=== PATIENT | male | born 1960 | race Two or more races ===

== ENCOUNTER 2017-07-08 11:34 | Inpatient (IN) | payer MEDICARE, MEDICAID ==
[2017-07-08] VITALS (7 sets, daily range): BP systolic 93–128; BP diastolic 54–74; PULSE 64–72; RESP 18–20; TEMP 98.1; Ht 182.9 cm; Wt 75.0 kg
[~2017-07-08] VITALS: Ht 182.9 cm; Wt 75.0 kg
[~2017-07-08 11:34] MED LIST: ACET500T98; ASPI-650; BISA10SU; CALA180L2; CARV3.1238; CLON-379; DIGO125T73; DIL1I; DOCU50LI18; FOLI-49; GUAI600T21; LEVA1.2527; LORA-441; MULT1TAB21; NYST15CR28; ONDA4VIA3; PANT40TA3; RTATR; RTPRO5; SAN30GM; SILV50CR; VALS80TA2; VIC; ZINC220T; [UNRECOGNIZED DRUG - CODE]; [UNRECOGNIZED DRUG - CODE]
[2017-07-08 12:44] LABS: BASOPHILS % 0.5 % (0.0-2.0); EOSINOPHILS # 0.4 10^3/ul (0.0-0.5); EOSINOPHILS % 5.7 % (0.0-7.0); HEMATOCRIT 29.6 % (42.0-52.0); LYMPHOCYTES # 1.2 10^3/ul (0.8-2.9); LYMPHOCYTES % 18.4 % (15.0-51.0); MEAN CORPUSCULAR HGB CONC 30.4 g/dl (32.0-37.0); MEAN CORPUSCULAR VOLUME 98.7 fl (82.0-101.0); MEAN PLATELET VOLUME 9.9 fl (7.4-10.4); MONOCYTE # 0.4 10^3/ul (0.3-0.9); MONOCYTES % 5.7 % (0.0-11.0); NEUTROPHIL # 4.4 10^3/ul (1.6-7.5); NEUTROPHILS % 68.8 % (39.0-77.0); PLATELET COUNT 196 10^3/UL (140-415); WHITE BLOOD COUNT 6.4 10^3/ul (4.8-10.8)
[2017-07-08 12:58] LABS: INR 0.99; PROTIME 13.1 Sec (12.2-14.2)
[2017-07-08 12:59] LABS: PARTIAL THROMBOPLASTIN TIME 38.1 Sec (25.0-35.0)
[2017-07-08 13:03] LABS: ALBUMIN 3.6 g/dl (3.3-4.9); BILIRUBIN,INDIRECT 0.1 mg/dl (0-1.1); BILIRUBIN,TOTAL 0.1 mg/dl (0.2-1.3); CALCIUM 8.9 mg/dl (8.4-10.2); CREATININE 1.69 mg/dl (0.61-1.24); POTASSIUM 5.3 mmol/L (3.5-5.1); TOTAL PROTEIN 6.7 g/dl (6.1-8.1)
--- NOTE | 2017-07-08 13:04 | RADRPT ---
PROCEDURE: XR Chest. CLINICAL INDICATION: chest pain TECHNIQUE: Single frontal view of the chest was obtained COMPARISON: None FINDINGS: The heart and mediastinum are within normal limits. There is no pneumothorax. There is left lower lobe pleural thickening versus small left pleural effusion. There is no focal consolidation. RPTAT: AA IMPRESSION: Left lower lobe pleural thickening versus small left pleural effusion. .Gaurang Barnes MD, MD Date Time Electronically viewed and signed by .Gaurang Barnes MD, on 07/08/2017 13:04 .S/
[2017-07-08] MEDS ORDERED: ONDANSETRON 4 MG INJ IV STA (13:07)
[2017-07-08] MEDS ORDERED: HYDROmorphONE 1 MG/ML SYG IV STA (13:07)
--- NOTE | 2017-07-08 13:15 | ERA ---
ER Documentation Chief Complaint Date/Time DATE: 07/08/17 TIME: 13:11 Chief Complaint Pt bib RA referred by for R femur fx, taken by mobil x-ray. HPI This is a 57-year-old quadriplegic from a gymnastics injury 30 years complains that he was sent for a broken right femur. The patient was being transported on a material stretcher that ripped and the 2 gentleman holding either and were able to catch him but he feels like his right leg got twisted in this stretcher. He states this happened around 7-10 days ago. He states that he has had some vague discomfort in his right thigh and is complaining to the doctors about it where he resides but nothing was done. He said finally an x- ray was done today which shows a compound right femur fracture and he was sent here for admission. ROS All systems reviewed and are negative except as per history of present illness. Medications Home Meds Reported Medications Ondansetron Hcl/Pf (Zofran 4 Mg/2 Ml Vial) 4 Mg/2 Ml Vial 10/16/10 Lorazepam* (Ativan*) 0.5 Mg Tablet 10/16/10 Hydromorphone Hcl* (Dilaudid* Inj) 1 Mg/Ml Soln 10/16/10 Acetaminophen/Hydrocodone (Vicodin) 1 Tab Tab 10/16/10 Clonidine Hcl* (Clonidine Hcl*) 0.1 Mg Tab 10/16/10 Albuterol Sulfate* (Proventil* Neb) 0.5 Ml Nebu 10/16/10 Acetaminophen (Tylenol) 500 Mg Tab 10/16/10 Zinc Sulfate* (Zinc Sulfate*) 220 Mg Tablet 10/16/10 Valsartan* (Diovan*) 80 Mg Tablet 10/16/10 Silver Sulfadiazine* (Thermazene*) 20 Gm Cream.gm. 10/16/10 Pantoprazole* (Protonix*) 40 Mg Tablet.dr 10/16/10 Nystatin (Nystatin) 15 Gm Cream.gm. 10/16/10 Multivitamins,Therapeutic (Theragran) 1 Tab Tablet 10/16/10 Levalbuterol Hcl* (Xopenex*) 1.25 Mg/3 Ml Vial.neb 10/16/10 Ipratropium [place]* (Atrovent*) 2.5 Ml Nebu 10/16/10 Guaifenesin* (Mucinex*) 600 Mg Tablet.sa 10/16/10 Folic Acid* (Folic Acid*) 1 Mg Tablet 10/16/10 Mineral Oil (Eucerin Lotion) 480 Ml Lotion 10/16/10 Docusate Sodium (Colace) 50 Mg/5 Ml Liquid 10/16/10 Digoxin (Digoxin) 125 Mcg Tablet 10/16/10 Collagenase* (Santyl*) 30 Gm Oint..gm. 10/16/10 Carvedilol* (Coreg*) 3.125 Mg Tablet 10/16/10 Calamine (Calamine) 180 Ml Lotion 10/16/10 Bisacodyl (Bisacodyl) 10 Mg/Supp.rect Supp.rect 10/16/10 Aspirin (Aspirin) 81 Mg Tablet 10/16/10 Ascorbic Acid (Ascorbic Acid) 500 Mg Tablet 10/16/10 Allergies Allergies: Coded Allergies: Gabapentin (Verified Allergy, Unknown, 10/16/10) PMhx/Soc History of Surgery: Yes (TRACHEOSTOMY) Anesthesia Reaction: No Hx Neurological Disorder: Yes (C5 QUADRIPLEGIA) Hx Respiratory Disorders: Yes (RESP DISTRESS WITH TRACHEOSTOMY) Hx Cardiac Disorders: Yes (MA WITH ATRIAL FIB) Hx Psychiatric Problems: No Hx Miscellaneous Medical Probl: Yes (ANEMIA, PAIN SYNDROME) Hx Alcohol Use: No Hx Substance Use: No Hx Tobacco Use: No FmHx Family History: No coronary disease Physical Exam Vitals Vital Signs Date Time Temp Pulse Resp B/P Pulse Ox O2 Delivery O2 Flow Rate FiO2 07/08/17 11:42 98.1 80 18 195/96 98 Physical Exam Const: Well-developed, well-nourished Head: Atraumatic, normocephalic Eyes: Normal Conjunctiva, PERRLA, EOMI, normal sclera, no nystagmus ENT: Normal External Ears, Nose and Mouth, moist mucus membranes. Neck: Full range of motion. No meningismus, no lymphadenopathy. Resp: Clear to auscultation bilaterally, no wheezing, rhonchi, rales Cardio: Regular rate and rhythm, no murmurs, S1 S2 present Abd: Soft, non tender x 4, non distended. Normal bowel sounds, no guarding or rebound, no pulsitile abdominal masses or bruits, indwelling Villarreal Skin: No petechiae or rashes, no ecchymosis , no maculopapular rash Back: No midline or flank tenderness Ext: No cyanosis, or edema, has some range of motion in the upper extremities shoulders with hand contractures, normal inspection, vascularly intact x 4, the right thigh has some edema and swelling, no redness or open wound Neur: Awake and alert, STR 5/5 x 4, sensation intact x 4, no focal findings, cerebellum intact Psych: Normal Mood and Affect Result Diagram: 07/08/17 1230 07/08/17 1230 Results 24 hrs Laboratory Tests Test 07/08/17 12:30 White Blood Count 6.410^3/ul Red Blood Count 3.0010^6/ul Hemoglobin 9.0g/dl Hematocrit 29.6% Mean Corpuscular Volume 98.7fl Mean Corpuscular Hemoglobin 30.0pg Mean Corpuscular Hemoglobin Concent 30.4g/dl Red Cell Distribution Width 14.0% Platelet Count 24406^3/UL Mean Platelet Volume 9.9fl Neutrophils % 68.8% Lymphocytes % 18.4% Monocytes % 5.7% Eosinophils % 5.7% Basophils % 0.5% Nucleated Red Blood Cells % 0.0/100WBC Neutrophils # 4.410^3/ul Lymphocytes # 1.210^3/ul Monocytes # 0.410^3/ul Eosinophils # 0.410^3/ul Basophils # 0.010^3/ul Nucleated Red Blood Cells # 0.010^3/ul Prothrombin Time 13.1Sec Prothrombin Time Ratio 1.0 INR International Normalized Ratio 0.99 Activated Partial Thromboplast Time 38.1Sec Sodium Level 145mmol/L Potassium Level 5.3mmol/L Chloride Level 116mmol/L Carbon Dioxide Level 21mmol/L Anion Gap 13 Blood Urea Nitrogen 33mg/dl Creatinine 1.69mg/dl Glucose Level 91mg/dl Calcium Level 8.9mg/dl Total Bilirubin 0.1mg/dl Direct Bilirubin 0.00mg/dl Indirect Bilirubin 0.1mg/dl Aspartate Amino Transf (AST/SGOT) 17IU/L Alanine Aminotransferase (ALT/SGPT) 29IU/L Alkaline Phosphatase 94IU/L Total Protein 6.7g/dl Albumin 3.6g/dl Current Medications Medications (Trade) Dose Ordered Sig/Rafael Route PRN Reason Start Time Stop Time Status Last Admin Dose Admin Hydromorphone HCl (Dilaudid) 1 mg ONCE STAT IV 07/08/17 13:07 07/08/17 13:10 DC 07/08/17 13:19 Ondansetron HCl (Zofran Inj) 4 mg ONCE STAT IV 07/08/17 13:07 07/08/17 13:10 DC 07/08/17 13:19 Procedures/MDM EKG: Rate/Rhythm: Sinus bradycardia QRS, ST, QT: NORMAL [place], QRS, QT] Impression: Sinus bradycardia PROCEDURE: XR Chest. CLINICAL INDICATION: chest pain TECHNIQUE: Single frontal view of the chest was obtained COMPARISON: None FINDINGS: The heart and mediastinum are within normal limits. There is no pneumothorax. There is left lower lobe pleural thickening versus small left pleural effusion. There is no focal consolidation. RPTAT: AA IMPRESSION: Left lower lobe pleural thickening versus small left pleural effusion. .Gaurang Barnes MD, MD Date Time Electronically viewed and signed by .Gaurang Barnes MD, MD on 07/08/2017 13: 04 .S/ CC: LEILA DAVIDSON DO PROCEDURE: XR Femur. CLINICAL INDICATION: Injury TECHNIQUE: AP and lateral views of the right femur were obtained. COMPARISON: No prior studies are available for comparison. FINDINGS: The osseous structures are markedly demineralized. There is a comminuted, minimally displaced fracture of the distal femoral diaphysis noting mild anterior angulation of the fracture apex and anterior displacement of the distal fragment. Tricompartmental knee arthrosis seen, partially assessed. The right hip is grossly preserved per there is a focus of dystrophic ossification/ ossification lateral to the greater trochanter. IMPRESSION: 1. Comminuted, mildly displaced and angulated fracture of the distal radial diaphysis. 2. Marked decreased bone mineral density. 3. Ectopic soft tissue calcification lateral to the right greater trochanter, to be correlated with history of dialysis. RPTAT: HH .Bob Quach MD, MD Date Time Electronically viewed and signed by .Bob Quach MD, MD on 07/08/2017 13:40 .d/ CC: LEILA DAVIDSON DO The page Dr. Thompson orthopedic surgery. Will admit the patient for operative repair of his right femur Departure Diagnosis: Primary Impression: Right femoral shaft fracture Qualified Code: S72.301A - Closed fracture of shaft of right femur, unspecified fracture morphology, initial encounter Condition: Stable LEILA DAVIDSON DO Jul 08, 2017 13:15
--- NOTE | 2017-07-08 13:41 | RADRPT ---
PROCEDURE: XR Femur. CLINICAL INDICATION: Injury TECHNIQUE: AP and lateral views of the right femur were obtained. COMPARISON: No prior studies are available for comparison. FINDINGS: The osseous structures are markedly demineralized. There is a comminuted, minimally displaced fractu re of the distal femoral diaphysis noting mild anterior angulation of the fracture apex and anterior displacement of the distal fragment. Tricompartmental knee arthrosis seen, partially assessed. The right hip is grossly preserved per there is a focus of dystrophic ossification/ossification lateral to the greater trochanter. IMPRESSION: 1. Comminuted, mildly displaced and angulated fracture of the distal radial diaphysis. 2. Marked decreased bone mineral density. 3. Ectopic soft tissue calcification lateral to the right greater trochanter, to be correlated with history of dialysis. RPTAT: HH .Bob Quach MD, MD Date Time Electronically viewed and signed by .Bob Quach MD, on 07/08/2017 13:40 .d/
[2017-07-08] MEDS ORDERED: SIMV20TA PO (14:41)
[2017-07-08] MEDS ORDERED: DOCU-159 PO (14:42)
[2017-07-08] MEDS ORDERED: ONDA4TAB95 PO (14:42)
[2017-07-08] MEDS ORDERED: OMEP40CA6 PO (14:43)
[2017-07-08] MEDS ORDERED: FOLI-49 PO (14:43)
[2017-07-08] MEDS ORDERED: VALS160T20 PO (14:44)
[2017-07-08] MEDS ORDERED: ERGO500037 PO (14:45)
[2017-07-08] MEDS ORDERED: HYDR-902 PO (14:46)
[2017-07-08] MEDS ORDERED: FENT-65 TD (14:47)
[2017-07-08] MEDS ORDERED: CLON-379 PO (14:48)
[2017-07-08] MEDS ORDERED: MUPI22OI2 TOP (14:49)
[2017-07-08] MEDS ORDERED: ALBU18HF INHALATION (14:49)
[2017-07-08 15:01] LABS: ADD UMIC YES; UR ASCORBIC ACID NEGATIVE (NEGATIVE); UR BACTERIA FEW /HPF (NONE SEEN); UR BILIRUBIN (Dip) NEGATIVE (NEGATIVE); UR BLOOD (Dip) 2+ mg/dL (NEGATIVE); UR CLARITY SLIGHTLY CLOUDY (CLEAR); UR COLOR YELLOW (YELLOW); UR GLUCOSE (Dip) NEGATIVE (NEGATIVE); UR KETONES (Dip) NEGATIVE (NEGATIVE); UR LEUKOCYTE ESTERASE (Dip) 3+ Leu/ul (NEGATIVE); UR NITRITE (Dip) NEGATIVE (NEGATIVE); UR RBC 10 /HPF (0-5); UR TOTAL PROTEIN (Dip) 2+ mg/dl (NEGATIVE); UR UROBILINOGEN (Dip) NEGATIVE (NEGATIVE)
[2017-07-08] MEDS ORDERED: ONDANSETRON 4 MG INJ IV PRN (15:30)
[2017-07-08] MEDS ORDERED: ACETAMINOPHEN 325 MG TAB PO PRN (15:30)
[2017-07-08] MEDS ORDERED: FENTANYL TD SCH (17:30)
[2017-07-08] MEDS ORDERED: ONDANSETRON (ODT) 4 MG TAB ODT PRN (17:30)
[2017-07-08] MEDS ORDERED: ZOLPIDEM 5 MG TAB PO PRN (17:30)
[2017-07-08] MEDS ORDERED: NACL 0.9% 3 ML SYG IV SCH (17:30)
--- NOTE | 2017-07-08 18:39 | RADRPT ---
PROCEDURE: Renal US. CLINICAL INDICATION: Renal dysfunction. TECHNIQUE: Multiple sonographic images of the kidneys and urinary bladder were obtained. The imag es were reviewed on a PACS workstation. COMPARISON: No prior studies are available for comparison. FINDINGS: The right kidney measures 10.3 x 6.3 x 6.6 cm. The left kidney measures 11.7 x 3.1 x 4.9 cm. There is no renal mass. There is no hydronephrosis. There is no renal calculus. Renal parenchymal thickness is normal bilaterally. Both kidneys are hyperechoic consistent with medical renal disease. The perirenal regions are normal with no fluid collection or mass. There is a Villarreal catheter in the bladder. IMPRESSION: 1. Bilateral hyperechoic kidneys consistent with medical renal disease. 2. No hydronephrosis. 3. Villarreal catheter in the bladder. 4. Otherwise normal renal ultrasound. RPTAT: QQ .Luis F Clark MD, MD Date Time Electronically viewed and signed by .Luis F Clark MD, on 07/08/2017 18:39 .R/
[2017-07-08 19:43] LABS: ADD UMIC YES; UR ASCORBIC ACID NEGATIVE (NEGATIVE); UR BACTERIA FEW /HPF (NONE SEEN); UR BILIRUBIN (Dip) NEGATIVE (NEGATIVE); UR BLOOD (Dip) NEGATIVE (NEGATIVE); UR CLARITY SLIGHTLY CLOUDY (CLEAR); UR COLOR YELLOW (YELLOW); UR GLUCOSE (Dip) NEGATIVE (NEGATIVE); UR KETONES (Dip) NEGATIVE (NEGATIVE); UR LEUKOCYTE ESTERASE (Dip) 3+ Leu/ul (NEGATIVE); UR MUCUS FEW /HPF (NONE SEEN); UR NITRITE (Dip) NEGATIVE (NEGATIVE); UR RBC 3 /HPF (0-5); UR SPECIFIC GRAVITY (Dip) 1.012 (1.003-1.030); UR TOTAL PROTEIN (Dip) 2+ mg/dl (NEGATIVE); UR UROBILINOGEN (Dip) NEGATIVE (NEGATIVE)
[2017-07-08] MEDS ORDERED: HYDROCODONE/APAP (10/325) TAB ONE (20:06)
[2017-07-08] MEDS: DOCUSATE SODIUM 100 MG CAP PO SCH (21:58)
[2017-07-08] MEDS: HYDROCODONE/APAP (10/325) TAB PO PRN (21:58)
[2017-07-08] MEDS: MUPIROCIN 2% 22 GM OINT TOP SCH (22:30)
[2017-07-09] MEDS: ALBUTEROL 18 GM INHALER INH SCH ×5 (00:22→22:02)
[2017-07-09] MEDS: HYDROmorphONE 1 MG/ML SYG IV PRN ×10 (00:48→22:44)
[2017-07-09] MEDS: GUAIFENESIN LA 600 MG TABSR PO PRN (00:52)
[2017-07-09 02:22] VITALS: BP 93/52; RESP 20
--- NOTE | 2017-07-09 02:40 | HP ---
DATE OF ADMISSION: 07/08/2017 HISTORY OF PRESENT ILLNESS: The patient is a 57-year-old gentleman with past medical history of chip driplegia after a gymnastic injury 30 years ago with contractures. The patient presented after had a mobile x-ray done on his knee, it was painful after he was twisted, which revealed a broken right femur. The patient was transported and was having pain for the last 7 to 10 days, but thought he mi ght have just strained it. Patient denies any other change. He has been on his regular medications . Continues good urine output, noted to have some renal insufficiency. Denies dysuria or hematuria . No history of frequent urinary tract infections or kidney stones. PAST MEDICAL HISTORY: Significant for C5 quadriplegia, history of respiratory failure, status post trach, status post correction, history of coronary artery disease, atrial fibrillation, history of M I, history of pain syndrome, history of asthma. MEDICATIONS: From home, include: 1. Zofran. 2. Lorazepam. 3. [place]. 4. Clonidine. 5. Albuterol. 6. Zinc sulfate. 7. Diovan. 8. Protonix. 9. Xopenex. 10. Atrovent. 11. Digoxin. 12. Collagenase. 13. Carvedilol. 14. Calamine. 15. Aspirin. 16. Ascorbic acid. ALLERGIES: , GABAPENTIN AND . SOCIAL HISTORY: Does not smoke, drink or use IV drugs. FAMILY HISTORY: History of kidney disease. REVIEW OF SYSTEMS: A 14-point review of systems is attempted and negative unless stated. PHYSICAL EXAMINATION: VITAL SIGNS: We see temperature 98.1, blood pressure 195/96. HEENT: Normocephalic, atraumatic. Pupils equal, round, reactive to light. Oropharynx with moist m ucous membranes. NECK: Supple. HEART: Regular rate and rhythm. LUNGS: Clear to auscultation. ABDOMEN: Soft, nontender, nondistended. Bowel sounds are present. LABORATORY EVALUATION: Shows a white count of 6.4, hemoglobin 9, hematocrit 30. Sodium 145, potass ium 5.3, chloride 116, bicarbonate 21, BUN 33, creatinine 1.69. UA is reviewed on microscopy. Ches t x-ray is reviewed by radiologist. IMPRESSION: 1. Femoral fracture. Probably will just need casting despite comminuted nature. Dr. Donald to evalua te given the fact that he is quadriplegic, probably will impact his mobility by casting it. 2. Hypertension, out of control at the current time. We will adjust medications. Would probably b enefit from limiting TUTU inhibitors in light of hyperkalemia and worsening azotemia. Monitor for no w. 3. Hyperkalemia, renal failure. Again, check ultrasound, urine studies, serial labs. May need to stop the Diovan. 4. 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 Continue Flocare. 5. History of atrial fibrillation, rate controlled. Does not appear to be on anticoagulation. We will discuss. Continue on digoxin. 6. Anemia, possibly anemia of chronic kidney disease. We will check iron stores in labs. 7. History of coronary artery disease. We will risk factor optimize. 8. Chronic pain syndrome. Continue regular analgesia. Dictated By: ELINOR SMITH MD DF/BIANCA Conf#: [id number] DID#: [id number]
[2017-07-09 05:05] LABS: BASOPHILS % 0.6 % (0.0-2.0); EOSINOPHILS # 0.4 10^3/ul (0.0-0.5); EOSINOPHILS % 5.3 % (0.0-7.0); HEMATOCRIT 26.8 % (42.0-52.0); HEMOGLOBIN 8.1 g/dl (14.0-18.0); LYMPHOCYTES # 1.6 10^3/ul (0.8-2.9); LYMPHOCYTES % 24.2 % (15.0-51.0); MEAN CORPUSCULAR HEMOGLOBIN 30.2 pg (29.0-33.0); MEAN CORPUSCULAR HGB CONC 30.2 g/dl (32.0-37.0); MONOCYTE # 0.5 10^3/ul (0.3-0.9); MONOCYTES % 6.8 % (0.0-11.0); NEUTROPHIL # 4.1 10^3/ul (1.6-7.5); PLATELET COUNT 188 10^3/UL (140-415); RED BLOOD COUNT 2.68 10^6/ul (4.70-6.10); RED CELL DISTRIBUTION WIDTH 14.1 % (11.5-14.5); WHITE BLOOD COUNT 6.7 10^3/ul (4.8-10.8)
[2017-07-09 05:25] LABS: ALBUMIN/GLOBULIN RATIO 0.96; CALCIUM 8.8 mg/dl (8.4-10.2); CREATININE 1.72 mg/dl (0.61-1.24); MAGNESIUM 1.7 mg/dl (1.7-2.5); PHOSPHORUS 4.4 mg/dl (2.5-4.9); POTASSIUM 5.3 mmol/L (3.5-5.1); TOTAL PROTEIN 6.1 g/dl (6.1-8.1)
[2017-07-09 05:40] LABS: T3 UPTAKE 45.2 % (23.5-40.5)
[2017-07-09 06:39] LABS: IRON 63 ug/dl (35-150)
[2017-07-09 06:49] LABS: TOTAL IRON BINDING CAPACITY 184 ug/dl (241-421)
[2017-07-09] MEDS: PANTOPRAZOLE (EC) 40 MG TAB PO SCH (06:56)
[2017-07-09 07:29] VITALS: BP 163/93; RESP 18
[2017-07-09] MEDS: HYDROCODONE/APAP (10/325) TAB PO PRN ×2 (08:11→20:30)
[2017-07-09] MEDS: MUPIROCIN 2% 22 GM OINT TOP SCH ×2 (09:00→22:45)
[2017-07-09] MEDS ORDERED: VALSARTAN 160 MG TAB PO SCH (09:00)
[2017-07-09] MEDS: DOCUSATE SODIUM 100 MG CAP PO SCH ×2 (09:03→20:25)
[2017-07-09] MEDS: FOLIC ACID 1 MG TAB PO SCH (09:03)
[2017-07-09] MEDS: ENOXAPARIN 40 MG/0.4 ML SYG SC SCH (09:04)
--- NOTE | 2017-07-09 10:06 | CONS ---
DATE OF ADMISSION: 07/08/2017 DATE OF CONSULTATION: 07/09/2017 CHIEF COMPLAINT: Right leg pain. HISTORY OF PRESENT ILLNESS: This is a 57-year-old quadriplegic nonambulatory patient. He is compla ining of pain all over his body. He noticed swelling over his knee. X-rays were taken. He denies any falls. He is nonambulatory. He has no other complaints. PAST MEDICAL HISTORY: C5 quadriplegia, respiratory failure, coronary artery disease, atrial fibrill ation, myocardial infarction, pain syndrome, asthma. MEDICATIONS: 1. Zofran. 2. [place]. 3. Clonidine. 4. Albuterol. 5. Diovan. 6. Protonix. 7. Atrovent. 8. Digoxin. 9. Carvedilol. 10. Aspirin. PAST SURGICAL HISTORY: Tracheostomy. SOCIAL HISTORY: Denies tobacco, alcohol or drug use. FAMILY HISTORY: Kidney disease. ALLERGIES: GABAPENTIN. REVIEW OF SYSTEMS: Negative other than H and P. PHYSICAL EXAMINATION: VITAL SIGNS: 98.1, 195/96, pulse of 68. GENERAL: Patient is in no acute distress. RIGHT KNEE: No open wounds. There is no deformity. There is an effusion of the right knee, tender over the entire knee, including medial lateral and anterior knee. Unable to perform neuro exam. P alpable pulses. X-RAYS RIGHT KNEE: There is an oblique extraarticular displaced fracture of the distal femur. No o ther fractures or dislocations are seen. IMPRESSION: A 57-year-old male with history of quadriplegia, nonambulatory with a right closed obli que displaced extraarticular distal femur fracture. PLAN: The patient will be nonweightbearing. Given the risks and benefits of this surgery, patient will be treated nonoperatively. Patient should receive a knee immobilizer. I discussed potential c omplications including skin breakdown, nonunion, malunion, stiffness, continued pain. All questions were answered. No operative intervention is necessary at this time. The patient can be discharged from orthopedic standpoint with followup as outpatient. Dictated By: MICAELA GRIFFIN/BIANCA Conf#: [id number] DID#: [id number]
[2017-07-09 14:00] VITALS: BP 128/75; RESP 90
[2017-07-09] MEDS: FENTAnyl PATCH 12 MCG/HR TRANSDERM SCH (16:53)
[2017-07-09] MEDS: ATORVASTATIN 10 MG TAB PO SCH (20:25)
[2017-07-09 20:37] VITALS: BP 178/98; RESP 18
[2017-07-09] MEDS: VALSARTAN 160 MG TAB PO SCH (21:30)
[2017-07-10] MEDS: ALBUTEROL 18 GM INHALER INH SCH ×3 (02:00→14:00)
[2017-07-10 02:05] VITALS: BP 140/89; RESP 20
[2017-07-10] MEDS: PANTOPRAZOLE (EC) 40 MG TAB PO SCH (06:18)
[2017-07-10] MEDS: HYDROCODONE/APAP (10/325) TAB PO PRN ×2 (06:18→22:14)
[2017-07-10 08:00] VITALS: BP 169/96; RESP 18
[2017-07-10] MEDS: VALSARTAN 160 MG TAB PO SCH ×2 (08:08→21:00)
[2017-07-10] MEDS: DOCUSATE SODIUM 100 MG CAP PO SCH ×2 (09:19→20:58)
[2017-07-10] MEDS: FOLIC ACID 1 MG TAB PO SCH (09:19)
[2017-07-10] MEDS: MUPIROCIN 2% 22 GM OINT TOP SCH ×2 (09:20→21:00)
[2017-07-10] MEDS: ENOXAPARIN 40 MG/0.4 ML SYG SC SCH (09:32)
[2017-07-10] MEDS: HYDROmorphONE 1 MG/ML SYG IV PRN ×4 (10:22→20:59)
[2017-07-10 15:07] VITALS: BP 126/67; PULSE 65; RESP 20
[2017-07-10 19:49] VITALS: BP 153/77; RESP 20
[2017-07-10] MEDS: GUAIFENESIN LA 600 MG TABSR PO PRN (20:57)
[2017-07-10] MEDS: ATORVASTATIN 10 MG TAB PO SCH (20:58)
[2017-07-11] MEDS: FOLIC ACID 1 MG TAB PO SCH (08:43)
[2017-07-11] MEDS: PANTOPRAZOLE (EC) 40 MG TAB PO SCH (08:43)
[2017-07-11] MEDS: HYDROmorphONE 1 MG/ML SYG IV PRN ×5 (08:43→21:59)
[2017-07-11] MEDS: DOCUSATE SODIUM 100 MG CAP PO SCH ×2 (08:43→20:58)
[2017-07-11] MEDS: ALBUTEROL 18 GM INHALER INH SCH ×4 (08:47→20:59)
[2017-07-11] MEDS: VALSARTAN 160 MG TAB PO SCH ×2 (08:50→21:02)
[2017-07-11] MEDS: ENOXAPARIN 40 MG/0.4 ML SYG SC SCH (08:56)
[2017-07-11] MEDS: MUPIROCIN 2% 22 GM OINT TOP SCH ×2 (09:00→21:00)
[2017-07-11] MEDS: HYDROCODONE/APAP (10/325) TAB PO PRN ×2 (10:06→23:00)
--- NOTE | 2017-07-11 11:25 | CONS ---
Date/Time of Note Date/Time of Note DATE: 07/11/17 TIME: 11:24 Consult Date/Type/Reason Admit Date/Time Jul 08, 2017 at 15:10 Initial Consult Date Subjective pt. sen and examined c/o pain seen by ortho needs more pain meds Objective Vital Signs Date Time Temp Pulse Resp B/P Pulse Ox O2 Delivery O2 Flow Rate FiO2 07/10/17 19:49 98.6 71 20 153/77 98 07/08/17 15:58 Room Air Intake and Output 07/10/17 07/10/17 07/11/17 15:00 23:00 07:00 Intake Total 600 ml 300 ml Output Total 1100 ml 1800 ml Balance -500 ml -1500 ml Results/Medications Result Diagram: 07/09/17 04307/09/17 043 Medications Current Medications Zolpidem Tartrate (Ambien) 5 mg QHS PRN PO SLEEP; Start 07/08/17 at 17:30 Enoxaparin Sodium (Lovenox) 40 mg DAILY SC Last administered on 07/11/17 08: 56; Admin Dose 40 MG; Start 07/09/17 at 09:00 Clonidine (Catapres) 0.1 mg BID PRN PO ELEVATED BLOOD PRESSURE Last administered on 07/09/17 20:24; Admin Dose 0.1 MG; Start 07/08/17 at 17:30 Docusate Sodium (Colace) 100 mg BID PO Last administered on 07/11/17 08:43; Admin Dose 100 MG; Start 07/08/17 at 21:00 Ergocalciferol (Drisdol) 50,000 unit Tu@09 PO ; Start 07/15/17 at 09:00 Folic Acid (Folic Acid) 1 mg DAILY PO Last administered on 07/11/17 08:43; Admin Dose 1 MG; Start 07/09/17 at 09:00 Acetaminophen/ Hydrocodone Bitart ([place] (10/325)) 1 tab Q12H PRN PO SEVERE PAIN LEVEL 7-10 Last administered on 07/11/17 10:06; Admin Dose 1 TAB; Start 07/08/17 at 17:30 Mupirocin (Bactroban) 1 applic BID TOP Last administered on 07/10/17 09:20; Admin Dose 1 APPLIC; Start 07/08/17 at 22:30 Atorvastatin Calcium (Lipitor) 10 mg DAILY@21 PO Last administered on 20:58; Admin Dose 10 MG; Start 07/09/17 at 21:00 Ondansetron HCl (Zofran Odt) 4 mg Q6H PRN ODT nausea; Start 07/08/17 at 17:30 Guaifenesin (Mucinex) 600 mg BID PRN PO Last administered on 07/10/17 20:57 ; Admin Dose 600 MG; Start 07/09/17 at 00:30 Hydromorphone HCl (Dilaudid) 1 mg Q2H PRN IV PAIN Last administered on 08:43; Admin Dose 1 MG; Start 07/09/17 at 01:00 Fentanyl (Duragesic 12 Mcg/Hr Patch) 1 patch Q72H TRANSDERM Last administered on 07/09/17 16:53; Admin Dose 1 PATCH; Start 07/09/17 at 16:00 Valsartan (Diovan) 160 mg BID PO Last administered on 07/11/17 08:50; Admin Dose 160 MG; Start 07/09/17 at 21:30 Assessment/Plan Chief Complaint/Hosp Course 1. Femoral fracture. Probably will just need casting despite comminuted nature. Dr. Donald to evaluate given the fact that he is quadriplegic, probably will impact his mobility by casting it. 2. Hypertension, out of control at the current time. We will adjust medications. Would probably benefit from limiting TUTU inhibitors in light of hyperkalemia and worsening azotemia. Monitor for now. 3. Hyperkalemia, renal failure. Again, check ultrasound, urine studies, serial labs. May need to stop the Diovan. 4. 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 Continue Flocare. 5. History of atrial fibrillation, rate controlled. Does not appear to be on anticoagulation. We will discuss. Continue on digoxin. 6. Anemia, possibly anemia of chronic kidney disease. We will check iron stores in labs. 7. History of coronary artery disease. We will risk factor optimize. 8. Chronic pain syndrome. Continue regular analgesia. Problems: VIKTORIA RAMOS MD Jul 11, 2017 11:25
[2017-07-11 14:00] VITALS: BP 113/58; RESP 18
--- NOTE | 2017-07-11 15:59 | RADRPT ---
Vent Rate: 75 bpm RR Interval: 0 msec TX Interval: 162 msec QRS Duration: 88 msec QT Interval: 378 msec QTC Interval: 422 msec P-R-T [place]: 72 - 53 - 76 degrees Normal sinus rhythm Normal ECG Electronically Signed By: Donnell Strickland [id number]
[2017-07-11 18:31] LABS: PTH CALCIUM 8.3 mg/dL (8.6-10.3)
[2017-07-11 19:52] VITALS: BP 136/90; RESP 22
[2017-07-11] MEDS: ATORVASTATIN 10 MG TAB PO SCH (20:58)
[2017-07-11 21:00] VITALS: BP 157/90; PULSE 82
[2017-07-12] MEDS: ALBUTEROL 18 GM INHALER INH SCH ×4 (02:00→20:56)
[2017-07-12] MEDS: HYDROmorphONE 1 MG/ML SYG IV PRN ×6 (03:32→22:15)
[2017-07-12 07:43] VITALS: BP 151/87; RESP 20
[2017-07-12] MEDS: VALSARTAN 160 MG TAB PO SCH ×2 (08:19→20:56)
[2017-07-12] MEDS: FOLIC ACID 1 MG TAB PO SCH (08:33)
[2017-07-12] MEDS: DOCUSATE SODIUM 100 MG CAP PO SCH ×2 (08:33→20:56)
[2017-07-12] MEDS: PANTOPRAZOLE (EC) 40 MG TAB PO SCH (08:33)
[2017-07-12] MEDS: ENOXAPARIN 40 MG/0.4 ML SYG SC SCH (08:46)
[2017-07-12] MEDS: MUPIROCIN 2% 22 GM OINT TOP SCH ×2 (09:00→20:56)
--- NOTE | 2017-07-12 09:11 | CONS ---
Date/Time of Note Date/Time of Note DATE: 07/12/17 TIME: 09:08 Consult Date/Type/Reason Admit Date/Time Jul 08, 2017 at 15:10 Type of Consultation: neohro/im Subjective pt. seen and examined good uop Objective Vital Signs Date Time Temp Pulse Resp B/P Pulse Ox O2 Delivery O2 Flow Rate FiO2 07/12/17 07:43 97.6 98 20 151/87 97 07/08/17 15:58 Room Air Intake and Output 07/11/17 07/11/17 07/12/17 15:00 23:00 07:00 Intake Total 1280 ml 600 ml Output Total 1500 ml 2750 ml Balance -220 ml -2150 ml Exam PHYSICAL EXAMINATION: VITAL SIGNS: stable ooc sbp in 150's range HEENT: Normocephalic, atraumatic. Pupils equal, round, reactive to light. Oropharynx with moist mucous membranes. NECK: Supple. HEART: Regular rate and rhythm. LUNGS: Clear to auscultation. ABDOMEN: Soft, nontender, nondistended. Bowel sounds are present. Results/Medications Result Diagram: 07/09/17 0431 07/09/17 0432 Medications Current Medications Zolpidem Tartrate (Ambien) 5 mg QHS PRN PO SLEEP; Start 07/08/17 at 17:30 Enoxaparin Sodium (Lovenox) 40 mg DAILY SC Last administered on 07/12/17 08: 46; Admin Dose 40 MG; Start 07/09/17 at 09:00 Clonidine (Catapres) 0.1 mg BID PRN PO ELEVATED BLOOD PRESSURE Last administered on 07/09/17 20:24; Admin Dose 0.1 MG; Start 07/08/17 at 17:30 Docusate Sodium (Colace) 100 mg BID PO Last administered on 07/12/17 08:33; Admin Dose 100 MG; Start 07/08/17 at 21:00 Ergocalciferol (Drisdol) 50,000 unit Tu@09 PO ; Start 07/15/17 at 09:00 Folic Acid (Folic Acid) 1 mg DAILY PO Last administered on 07/12/17 08:33; Admin Dose 1 MG; Start 07/09/17 at 09:00 Mupirocin (Bactroban) 1 applic BID TOP Last administered on 07/10/17 09:20; Admin Dose 1 APPLIC; Start 07/08/17 at 22:30 Atorvastatin Calcium (Lipitor) 10 mg DAILY@21 PO Last administered on 20:58; Admin Dose 10 MG; Start 07/09/17 at 21:00 Ondansetron HCl (Zofran Odt) 4 mg Q6H PRN ODT nausea; Start 07/08/17 at 17:30 Guaifenesin (Mucinex) 600 mg BID PRN PO Last administered on 07/10/17 20:57 ; Admin Dose 600 MG; Start 07/09/17 at 00:30 Hydromorphone HCl (Dilaudid) 1 mg Q2H PRN IV PAIN Last administered on 08:33; Admin Dose 1 MG; Start 07/09/17 at 01:00 Fentanyl (Duragesic 12 Mcg/Hr Patch) 1 patch Q72H TRANSDERM Last administered on 07/09/17 16:53; Admin Dose 1 PATCH; Start 07/09/17 at 16:00 Valsartan (Diovan) 160 mg BID PO Last administered on 07/12/17 08:19; Admin Dose 160 MG; Start 07/09/17 at 21:30 Acetaminophen/ Hydrocodone Bitart ([place] (10/325)) 1 tab Q8H PRN PO SEVERE PAIN LEVEL 7-10 Last administered on 07/11/17 23:00; Admin Dose 1 TAB; Start 07/11/17 at 14:00 Assessment/Plan Chief Complaint/Hosp Course 1. Femoral fracture. Probably will just need casting despite comminuted nature. Dr. Donald to evaluate given the fact that he is quadriplegic, probably will impact his mobility by casting it. 2. Hypertension-still high, add low dose norvasc. check potassium on arb 3. Hyperkalemia, renal failure. recheck on diovan, renal us with chronic changes,no obstruction, ua noted no proteinuria 4. 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 Continue Flocare. 5. History of atrial fibrillation, rate controlled. Does not appear to be on anticoagulation. We will discuss. Continue on digoxin. 6. Anemia, possibly anemia of chronic kidney disease. We will check iron stores in labs. 7. History of coronary artery disease. We will risk factor optimize. 8. Chronic pain syndrome. Continue regular analgesia. Problems: VIKTORIA RAMOS MD Jul 12, 2017 09:11
[2017-07-12] MEDS: HYDROCODONE/APAP (10/325) TAB PO PRN ×2 (10:36→23:17)
[2017-07-12] MEDS: FENTAnyl PATCH 12 MCG/HR TRANSDERM SCH (16:49)
[2017-07-12 19:53] VITALS: BP 152/93; RESP 22
[2017-07-12] MEDS: ATORVASTATIN 10 MG TAB PO SCH (20:56)
[2017-07-13 02:00] VITALS: BP 136/78; PULSE 70; RESP 18
[2017-07-13] MEDS: ALBUTEROL 18 GM INHALER INH SCH ×4 (02:00→20:00)
[2017-07-13 06:03] LABS: BASOPHILS % 0.5 % (0.0-2.0); EOSINOPHILS # 0.5 10^3/ul (0.0-0.5); EOSINOPHILS % 5.4 % (0.0-7.0); HEMATOCRIT 31.2 % (42.0-52.0); HEMOGLOBIN 9.5 g/dl (14.0-18.0); LYMPHOCYTES # 1.9 10^3/ul (0.8-2.9); LYMPHOCYTES % 22.9 % (15.0-51.0); MEAN CORPUSCULAR HEMOGLOBIN 30.7 pg (29.0-33.0); MEAN CORPUSCULAR HGB CONC 30.4 g/dl (32.0-37.0); MEAN PLATELET VOLUME 10.3 fl (7.4-10.4); MONOCYTE # 0.8 10^3/ul (0.3-0.9); MONOCYTES % 9.1 % (0.0-11.0); NEUTROPHIL # 5.1 10^3/ul (1.6-7.5); NEUTROPHILS % 61.4 % (39.0-77.0); PLATELET COUNT 233 10^3/UL (140-415); RED BLOOD COUNT 3.09 10^6/ul (4.70-6.10); RED CELL DISTRIBUTION WIDTH 14.2 % (11.5-14.5); WHITE BLOOD COUNT 8.3 10^3/ul (4.8-10.8)
[2017-07-13 06:59] LABS: CALCIUM 8.7 mg/dl (8.4-10.2); CREATININE 1.67 mg/dl (0.61-1.24); MAGNESIUM 1.7 mg/dl (1.7-2.5); PHOSPHORUS 4.9 mg/dl (2.5-4.9); POTASSIUM 5.6 mmol/L (3.5-5.1)
[2017-07-13 07:23] VITALS: BP 130/81; RESP 20
[2017-07-13] MEDS: HYDROmorphONE 1 MG/ML SYG IV PRN ×7 (08:03→22:42)
[2017-07-13] MEDS: MUPIROCIN 2% 22 GM OINT TOP SCH ×2 (09:00→21:00)
[2017-07-13] MEDS: DOCUSATE SODIUM 100 MG CAP PO SCH ×2 (09:36→21:51)
[2017-07-13] MEDS: FOLIC ACID 1 MG TAB PO SCH (09:36)
[2017-07-13] MEDS: VALSARTAN 160 MG TAB PO SCH ×2 (09:36→21:00)
[2017-07-13] MEDS: PANTOPRAZOLE (EC) 40 MG TAB PO SCH (09:37)
[2017-07-13] MEDS: ENOXAPARIN 40 MG/0.4 ML SYG SC SCH (09:39)
--- NOTE | 2017-07-13 10:00 | DS ---
Date/Time of Note Date/Time of Note DATE: 07/13/17 TIME: 09:58 Discharge Summary Admission/Discharge Info Admit Date/Time Jul 08, 2017 at 15:10 Discharge Date/Time Patient Condition: Good Hx of Present Illness pt. admitted seen by ortho, cleared to be dc gome in immobilizer, pain meds, will arrange home health Hospital Course 1. Femoral fracture. Probably will just need casting despite comminuted nature. Dr. Donald to evaluated given the fact that he is quadriplegic, probably will impact his mobility by casting it. 2. Hypertension-still high, add low dose norvasc. check potassium on arb 3. Hyperkalemia, renal failure. recheck on luis evan, renal us with chronic changes,no obstruction, ua noted no proteinuria 4. 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 Continue Flocare. 5. History of atrial fibrillation, rate controlled. Does not appear to be on anticoagulation. We will discuss. Continue on digoxin. 6. Anemia, possibly anemia of chronic kidney disease. We will check iron stores in labs. 7. History of coronary artery disease. We will risk factor optimize. 8. Chronic pain syndrome. Continue regular analgesia. Home Meds Reported Medications Albuterol Sulfate* (Ventolin HFA*) 18 Gm Hfa.aer.ad, 2 PUFF INHALATION Q6H, #1 INHALER 07/08/17 Mupirocin* (Bactroban*) 2% -22 Gram Oint...g., 1 APPLIC TOP BID, #1 TUB SITE OF APPLICATION: 07/08/17 Clonidine Hcl* (Clonidine Hcl*) 0.1 Mg Tab, 0.1 MG PO BID Y for ELEVATED BLOOD PRESSURE, TAB 07/08/17 Fentanyl (Fentanyl) 1 Each Patch.td72, 1 EACH TD Q72H, PATCH 07/08/17 Hydrocodone/Acetaminophen ([place] 10-325 Tablet) 1 Each Tablet, 1 EACH PO BID Y for SEVERE PAIN LEVEL 7-10, TAB 07/08/17 Ergocalciferol (Vitamin D2) (VITAMIN D2) 50,000 Unit Capsule, 91590 UNIT PO WEEKLY, CAP 07/08/17 Valsartan* (Diovan*) 160 Mg Tablet, 160 MG PO DAILY, TAB 07/08/17 Omeprazole* (Omeprazole*) 40 Mg Capsule., 40 MG PO AC BREAKFAST, #30 CAP 07/08/17 Folic Acid* (Folic Acid*) 1 Mg Tablet, 1 MG PO DAILY, TAB 07/08/17 Ondansetron Hcl* (Ondansetron Hcl*) 4 Mg Tablet, 4 MG PO Q6H Y for NAUSEA AND/ OR VOMITING, TAB 07/08/17 Docusate Sodium* (Docusate Sodium*) 100 Mg Capsule, 100 MG PO BID, #60 CAP 07/08/17 Simvastatin* (Zocor*) 20 Mg Tablet, 20 MG PO QHS, #30 TAB 07/08/17 Discontinued Reported Medications Ondansetron Hcl/Pf (Zofran 4 Mg/2 Ml Vial) 4 Mg/2 Ml Vial 10/16/10 Lorazepam* (Ativan*) 0.5 Mg Tablet 10/16/10 Hydromorphone Hcl* (Dilaudid* Inj) 1 Mg/Ml Soln 10/16/10 Acetaminophen/Hydrocodone (Vicodin) 1 Tab Tab 10/16/10 Clonidine Hcl* (Clonidine Hcl*) 0.1 Mg Tab 10/16/10 Albuterol Sulfate* (Proventil* Neb) 0.5 Ml Nebu 10/16/10 Acetaminophen (Tylenol) 500 Mg Tab 10/16/10 Zinc Sulfate* (Zinc Sulfate*) 220 Mg Tablet 10/16/10 Valsartan* (Diovan*) 80 Mg Tablet 10/16/10 Silver Sulfadiazine* (Thermazene*) 20 Gm Cream.gm. 10/16/10 Pantoprazole* (Protonix*) 40 Mg Tablet.dr 10/16/10 Nystatin (Nystatin) 15 Gm Cream.gm. 10/16/10 Multivitamins,Therapeutic (Theragran) 1 Tab Tablet 10/16/10 Levalbuterol Hcl* (Xopenex*) 1.25 Mg/3 Ml Vial.neb 10/16/10 Ipratropium Jackson* (Atrovent*) 2.5 Ml Nebu 10/16/10 Guaifenesin* (Mucinex*) 600 Mg Tablet.sa 10/16/10 Folic Acid* (Folic Acid*) 1 Mg Tablet 10/16/10 Mineral Oil (Eucerin Lotion) 480 Ml Lotion 10/16/10 Docusate Sodium (Colace) 50 Mg/5 Ml Liquid 10/16/10 Digoxin (Digoxin) 125 Mcg Tablet 10/16/10 Collagenase* (Santyl*) 30 Gm Oint..gm. 10/16/10 Carvedilol* (Coreg*) 3.125 Mg Tablet 10/16/10 Calamine (Calamine) 180 Ml Lotion 10/16/10 Bisacodyl (Bisacodyl) 10 Mg/Supp.rect Supp.rect 10/16/10 Aspirin (Aspirin) 81 Mg Tablet 10/16/10 Ascorbic Acid (Ascorbic Acid) 500 Mg Tablet 10/16/10 Primary Care Provider Not On Staff Doctor Pending Labs Laboratory Tests Test 07/13/17 04:43 White Blood Count 8.310^3/ul (4.8-10.8) Red Blood Count 3.0910^6/ul (4.70-6.10) Hemoglobin 9.5g/dl (14.0-18.0) Hematocrit 31.2% (42.0-52.0) Mean Corpuscular Volume 101.0fl (82.0-101.0) Mean Corpuscular Hemoglobin 30.7pg (29.0-33.0) Mean Corpuscular Hemoglobin Concent 30.4g/dl (32.0-37.0) Red Cell Distribution Width 14.2% (11.5-14.5) Platelet Count 47315^3/UL (140-415) Mean Platelet Volume 10.3fl (7.4-10.4) Neutrophils % 61.4% (39.0-77.0) Lymphocytes % 22.9% (15.0-51.0) Monocytes % 9.1% (0.0-11.0) Eosinophils % 5.4% (0.0-7.0) Basophils % 0.5% (0.0-2.0) Nucleated Red Blood Cells % 0.0/100WBC (0.0-0.0) Neutrophils # 5.110^3/ul (1.6-7.5) Lymphocytes # 1.910^3/ul (0.8-2.9) Monocytes # 0.810^3/ul (0.3-0.9) Eosinophils # 0.510^3/ul (0.0-0.5) Basophils # 0.010^3/ul (0.0-0.1) Nucleated Red Blood Cells # 0.010^3/ul (0.0-0.0) Sodium Level 142mmol/L (135-144) Potassium Level 5.6mmol/L (3.5-5.1) Chloride Level 112mmol/L (97-110) Carbon Dioxide Level 23mmol/L (21-31) Anion Gap 13 (8-16) Blood Urea Nitrogen 42mg/dl (7-20) Creatinine 1.67mg/dl (0.61-1.24) Glucose Level 90mg/dl (70-220) Calcium Level 8.7mg/dl (8.4-10.2) Phosphorus Level 4.9mg/dl (2.5-4.9) Magnesium Level 1.7mg/dl (1.7-2.5) VIKTORIA RAMOS MD Jul 13, 2017 10:00
[2017-07-13] MEDS: HYDROCODONE/APAP (10/325) TAB PO PRN ×2 (13:37→23:58)
[2017-07-13 14:14] VITALS: BP 107/57; RESP 20
[2017-07-13 20:00] VITALS: BP 93/55; RESP 20
[2017-07-13] MEDS: ATORVASTATIN 10 MG TAB PO SCH (21:53)
[2017-07-14] MEDS: ALBUTEROL 18 GM INHALER INH SCH ×4 (01:42→20:56)
[2017-07-14 02:36] VITALS: BP 125/73; RESP 20
[2017-07-14] MEDS: PANTOPRAZOLE (EC) 40 MG TAB PO SCH (06:34)
[2017-07-14] MEDS: HYDROmorphONE 1 MG/ML SYG IV PRN ×4 (06:34→14:18)
[2017-07-14 08:02] VITALS: BP 125/82; RESP 18
[2017-07-14] MEDS: DOCUSATE SODIUM 100 MG CAP PO SCH ×2 (08:38→20:54)
[2017-07-14] MEDS: VALSARTAN 160 MG TAB PO SCH (08:38)
[2017-07-14] MEDS: FOLIC ACID 1 MG TAB PO SCH (08:39)
[2017-07-14] MEDS: ENOXAPARIN 40 MG/0.4 ML SYG SC SCH (08:47)
[2017-07-14] MEDS: MUPIROCIN 2% 22 GM OINT TOP SCH ×2 (09:00→20:55)
[2017-07-14] MEDS: HYDROCODONE/APAP (10/325) TAB PO PRN ×2 (09:45→19:38)
[2017-07-14] MEDS ORDERED: HYDROmorphONE 4 MG TAB PO PRN (15:00)
[2017-07-14] MEDS: HYDROmorphONE 2 MG TAB PO PRN (15:40)
[2017-07-14 15:55] LABS: CALCIUM 8.4 mg/dl (8.4-10.2); CREATININE 2.07 mg/dl (0.61-1.24); POTASSIUM 5.2 mmol/L (3.5-5.1)
[2017-07-14] MEDS: ALBUMIN HUMAN 25% 100 ML IV SCH ×2 (20:00→20:33)
[2017-07-14 20:30] VITALS: BP 135/71; RESP 19
[2017-07-14] MEDS: ATORVASTATIN 10 MG TAB PO SCH (20:54)
[2017-07-15] MEDS: ALBUTEROL 18 GM INHALER INH SCH ×3 (02:00→14:00)
--- NOTE | 2017-07-15 02:42 | CONS ---
DATE OF ADMISSION: 07/08/2017 DATE OF CONSULTATION: 07/14/2017 INFECTIOUS DISEASE CONSULTATION REASON FOR CONSULTATION: Antibiotic management. HISTORY OF PRESENT ILLNESS: Ryan Gray is a 57-year-old male with a history of quadriplegia aft er gymnastic injury 30 years ago. Patient presented after he had a mobile x-ray done on his knee wh ich was painful after he had been twisted in an awkward position. The x-ray revealed a broken right femur. The patient has had pain for the last 7 to 10 days. He denies any other changes. He has s ome renal insufficiency. He denies dysuria or hematuria. No history of frequent urinary tract infe ctions or kidney stones. His past history is significant for C5 quadriplegia, history of respirator y failure, status post tracheostomy, status post removal of tracheostomy. The patient also has a hi story of coronary artery disease, atrial fibrillation, history of NM in the past, pain syndrome and asthma. On admission, his white count was 6.4, H and H of 9 and 29.6, platelet count 196,000. On , his white count was 8.3. BUN and creatinine was 47/2.07. His urine on admission showed 3+ leukocyte esterase and 66 white cells per high-power field. The patient was started on no antibiot ics. His chest x-ray from 07/08/2017 shows left lower lobe pleural thickening versus small left ple ural effusion. A femoral x-ray noted a comminuted mildly displaced and angulated fracture of the di stal radial diathesis. He had some ectopic soft tissue calcification lateral to the right greater t rochanter to be correlated with a history of dialysis. Patient's BUN and creatinine is 47/2.07. PAST MEDICAL HISTORY: Operations: Status post tracheostomy in the past. FAMILY HISTORY: Noncontributory. SOCIAL HISTORY: He does not smoke, drink or abuse drugs. ALLERGIES: GABAPENTIN. MEDICATIONS: Per chart. REVIEW OF SYSTEMS: As per HPI. PHYSICAL EXAMINATION: GENERAL: The patient is a well-developed, well-nourished male who is alert, responsive, in no acute distress. VITAL SIGNS: Stable. He is afebrile. SKIN: Without generalized rash. HEENT: Within normal limits. NECK: Supple. LYMPH NODES: None palpable. CHEST: Decreased breath sounds at the bases. HEART: Without murmur or gallop. ABDOMEN: Soft, nontender without organosplenomegaly or masses. EXTREMITIES: Without cyanosis, clubbing or edema. His right leg is not in a cast, but in a brace. RECTAL AND GENITAL: Deferred. Villarreal catheter in place. NEUROLOGIC: The patient is quadriplegic. IMPRESSION AND PLAN: No obvious source of infection at this time, although his urine was not clear. Nevertheless, he has a Villarreal in and he is afebrile, and his white count is normal. So at this poi nt, I would not add any antibiotics to his management. I will dictate my findings to Dr. Hillary Lowe, and Dr. Smith. Dictated By: MC VARGAS MD, JD/BIANCA Conf#: [id number] DID#: [id number] CC: ELINOR SMITH MD; MIGUEL LOWE DO; VIKTORIA RAMOS MD;*EndCC*
[2017-07-15 02:59] VITALS: BP 133/81; RESP 19
[2017-07-15 05:39] LABS: BASOPHILS % 0.5 % (0.0-2.0); EOSINOPHILS # 0.3 10^3/ul (0.0-0.5); EOSINOPHILS % 5.1 % (0.0-7.0); HEMATOCRIT 27.4 % (42.0-52.0); HEMOGLOBIN 8.2 g/dl (14.0-18.0); LYMPHOCYTES # 1.3 10^3/ul (0.8-2.9); LYMPHOCYTES % 21.2 % (15.0-51.0); MEAN CORPUSCULAR HEMOGLOBIN 29.8 pg (29.0-33.0); MEAN CORPUSCULAR HGB CONC 29.9 g/dl (32.0-37.0); MEAN CORPUSCULAR VOLUME 99.6 fl (82.0-101.0); MEAN PLATELET VOLUME 10.4 fl (7.4-10.4); MONOCYTE # 0.5 10^3/ul (0.3-0.9); MONOCYTES % 7.7 % (0.0-11.0); NEUTROPHILS % 64.5 % (39.0-77.0); PLATELET COUNT 205 10^3/UL (140-415); RED BLOOD COUNT 2.75 10^6/ul (4.70-6.10); RED CELL DISTRIBUTION WIDTH 14.4 % (11.5-14.5); WHITE BLOOD COUNT 6.1 10^3/ul (4.8-10.8)
[2017-07-15] MEDS: PANTOPRAZOLE (EC) 40 MG TAB PO SCH (06:29)
[2017-07-15 06:49] LABS: CALCIUM 9.1 mg/dl (8.4-10.2); CREATININE 2.02 mg/dl (0.61-1.24); MAGNESIUM 1.9 mg/dl (1.7-2.5); PHOSPHORUS 4.5 mg/dl (2.5-4.9); POTASSIUM 5.5 mmol/L (3.5-5.1)
--- NOTE | 2017-07-15 06:59 | CONS ---
Date/Time of Note Date/Time of Note DATE: 07/15/17 TIME: 06:53 Assessment/Plan Assessment/Plan Additional Assessment/Plan Right femoral fracture Quadriplegia Coronary heart disease History of respiratory failure History of tracheostomy At this time I suggested we change his Dilaudid as he requested to his twice a day, change the [place] to 4 times daily as needed. This gentleman knows the amount of medication I will control his chronic pain management syndrome and he is not drug-seeking. I will make the appropriate changes and support him throughout this hospitalization. Consultation Date/Type/Reason Admit Date/Time Jul 08, 2017 at 15:10 Type of Consultation: Pain management Hx of Present Illness This is a very pleasant 57-year-old gentleman admitted to [facility] with a broken right femur. Patient states that he was twisted and developed severe pain portable x-ray confirmed the above diagnosis. Patient states pain in his right lower extremity is significant but he has had generalized body pain secondary to quadriplegia described as a gnawing discomfort bilateral upper extremities bilateral lower extremities. Rates this as a 10/10 hour with medications tolerable down to moderate 3/10. Current pain medications at home include fentanyl 12 mcg and [place] 1 tablet twice daily. This hospitalization he is on fentanyl but [place] has been increased to every 4 hours and Dilaudid has been added at 4 mg every 4 hours as needed. He states he does not need the amount or dosage of the Dilaudid is currently receiving request a lower amount. Denies nausea vomiting constipation itching mental cloudiness fatigue or drowsiness associated with his current pain control medication or side effects of current pain control medications. This gentleman is not drug-seeking there is no purposeful oversedation is very pleasant to speak with he does not appear to be unkempt not asked for early renewals of his medication or uses pain medication response to situational stressors this gentleman does not abuse street drugs or drink alcohol and he is non-smoker. Current pain is not affecting his overall physical function social family relationships mood sleeping patterns. He has never been involved with a drug treatment program or has had any difficulties with law enforcement. HISTORY OF PRESENT ILLNESS: The patient is a 57-year-old gentleman with past medical history of quadriplegia after a gymnastic injury 30 years ago with contractures. The patient presented after had a mobile x-ray done on his knee, it was painful after he was twisted, which revealed a broken right femur. The patient was transported and was having pain for the last 7 to 10 days, but thought he might have just strained it. Patient denies any other change. He has been on his regular medications. Continues good urine output, noted to have some renal insufficiency. Denies dysuria or hematuria. No history of frequent urinary tract infections or kidney stones. PAST MEDICAL HISTORY: Significant for C5 quadriplegia, history of respiratory failure, status post trach, status post correction, history of coronary artery disease, atrial fibrillation, history of AL, history of pain syndrome, history of asthma. Social History Smoking Status: Never smoker Exam/Review of Systems Vital Signs Vitals Vital Signs Date Time Temp Pulse Resp B/P Pulse Ox O2 Delivery O2 Flow Rate FiO2 07/15/17 02:59 98.8 71 19 133/81 96 Intake and Output 07/14/17 07/14/17 07/15/17 15:00 23:00 07:00 Intake Total 700 ml 620 ml Output Total 600 ml 550 ml Balance 100 ml 70 ml Exam Constitutional: alert, oriented, well developed Psych: nl mood/affect, no complaints Head: atraumatic, normocephalic Neck: non-tender, supple Respiratory: clear to auscultation, normal air movement, No congested cough, No crackles/rales, No diminished breath sounds, No intercostal retraction, No labored breathing, No other, No respirations, No tactile fremitus, No wheezing Cardiovascular: nl pulses, regular rate and rhythm, No S3, No S4, No bruits, No diastolic murmur, No edema, No gallop, No irregular rhythm, No jugular venous distention (JVD), No murmurs/extra sounds, No other, No rub, No systolic murmur Gastrointestinal: nl liver, spleen, non-tender, soft Neurological: UNDERWRITING SERVICE REPRESENTATIVE II-XII intact, nl mental status, nl speech, nl strength, No DTR's symmetric, No confused, No focal weakness, No lethargic, No numbness , No other, No reflexes, No unresponsive Results Result Diagram: 07/15/17 0427 07/14/17 1520 Results 24 hrs Laboratory Tests Test 07/14/17 15:20 07/15/17 04:27 Sodium Level 142 Potassium Level 5.2 H Chloride Level 112 H Carbon Dioxide Level 22 Anion Gap 13 Blood Urea Nitrogen 47 H Creatinine 2.07 H Glucose Level 114 Calcium Level 8.4 White Blood Count 6.1 # Red Blood Count 2.75 L Hemoglobin 8.2 L Hematocrit 27.4 L Mean Corpuscular Volume 99.6 Mean Corpuscular Hemoglobin 29.8 Mean Corpuscular Hemoglobin Concent 29.9 L Red Cell Distribution Width 14.4 Platelet Count 205 Mean Platelet Volume 10.4 Neutrophils % 64.5 Lymphocytes % 21.2 Monocytes % 7.7 Eosinophils % 5.1 Basophils % 0.5 Nucleated Red Blood Cells % 0.0 Neutrophils # 4.0 Lymphocytes # 1.3 Monocytes # 0.5 Eosinophils # 0.3 Basophils # 0.0 Nucleated Red Blood Cells # 0.0 Medications Medications Current Medications Zolpidem Tartrate (Ambien) 5 mg QHS PRN PO SLEEP; Start 07/08/17 at 17:30 Enoxaparin Sodium (Lovenox) 40 mg DAILY SC Last administered on 07/14/17 08: 47; Admin Dose 40 MG; Start 07/09/17 at 09:00 Clonidine (Catapres) 0.1 mg BID PRN PO ELEVATED BLOOD PRESSURE Last administered on 07/09/17 20:24; Admin Dose 0.1 MG; Start 07/08/17 at 17:30 Docusate Sodium (Colace) 100 mg BID PO Last administered on 07/14/17 20:54; Admin Dose 100 MG; Start 07/08/17 at 21:00 Ergocalciferol (Drisdol) 50,000 unit Tu@09 PO ; Start 07/15/17 at 09:00 Folic Acid (Folic Acid) 1 mg DAILY PO Last administered on 07/14/17 08:39; Admin Dose 1 MG; Start 07/09/17 at 09:00 Mupirocin (Bactroban) 1 applic BID TOP Last administered on 07/14/17 20:55; Admin Dose 1 APPLIC; Start 07/08/17 at 22:30 Atorvastatin Calcium (Lipitor) 10 mg DAILY@21 PO Last administered on 20:54; Admin Dose 10 MG; Start 07/09/17 at 21:00 Ondansetron HCl (Zofran Odt) 4 mg Q6H PRN ODT nausea; Start 07/08/17 at 17:30 Guaifenesin (Mucinex) 600 mg BID PRN PO Last administered on 07/10/17 20:57 ; Admin Dose 600 MG; Start 07/09/17 at 00:30 Fentanyl (Duragesic 12 Mcg/Hr Patch) 1 patch Q72H TRANSDERM Last administered on 07/12/17 16:49; Admin Dose 1 PATCH; Start 07/09/17 at 16:00 Valsartan (Diovan) 160 mg BID PO Last administered on 07/14/17 08:38; Admin Dose 160 MG; Start 07/09/17 at 21:30; Status Future Hold Acetaminophen/ Hydrocodone Bitart ([place] ()) 1 tab Q8H PRN PO SEVERE PAIN LEVEL 7-10 Last administered on 07/14/17 19:38; Admin Dose 1 TAB; Start 07/11/17 at 14:00 Hydromorphone HCl 4 mg 4 mg Q4H PRN PO PAIN Last administered on 07/14/17 15: 40; Admin Dose 4 MG; Start 07/14/17 at 15:35 Albumin Human (Albumin Human 25%) 100 ml @ 100 mls/hr Q8H IV Last administered on 07/14/17 20:33; Admin Dose 100 MLS/HR; Start 07/14/17 at 17: 00; Stop 07/15/17 at 09:59 TIANNA CARDENAS Jul 15, 2017 06:59
--- NOTE | 2017-07-15 07:12 | PN ---
DATE: 07/14/2017 SUBJECTIVE: The patient is complaining about pain, states that current pain regimen has not been ad equate. No other events noted. No hemoptysis, hematemesis, hematochezia. OBJECTIVE: VITALS: Blood pressure is 125/82, respirations 18, pulse 68, temperature 98.2. HEENT: Head is normocephalic. NECK: Supple. HEART: Regular rate. LUNGS: Show diminished breath sounds at the base. ABDOMEN: Soft, nontender to palpation without guarding. EXTREMITIES: Negative for clubbing, cyanosis. No edema. There is a noted brace on patient's right leg. DERMATOLOGIC: No rashes. MUSCULOSKELETAL: No joint effusions. NEUROLOGIC: No change in exam. MEDICATIONS: The patient's medications have been reviewed. LABORATORY DATA: Showed a sodium 142, potassium 5.2, chloride 112, BUN 47, creatinine 2.07. ASSESSMENT AND PLAN: 1. Right femoral fracture. The patient was evaluated by orthopedist, Dr. Garzon. No plan for interve ntion at this time. The patient will be kept in a brace. We will monitor closely. Continue pain c ontrol. 2. Nonoliguric acute kidney injury with unknown baseline creatinine. Etiology may be secondary to hemodynamics, ARB effect. Plan is to discontinue Diovan. We will give the patient fluid challenge. We will repeat a UA with microanalysis, check urine electrolytes. A renal ultrasound was obtained , which shows no evidence of obstruction, but findings consistent with underlying chronic kidney dis ease. We will monitor closely. 3. Chronic kidney disease with unknown baseline creatinine. Continue to treat acute kidney injury as stated above. Continue current treatment plan and supportive care, and renally dose all medicati ons. Continue factor modification. 4. Hyperkalemia, likely secondary to acute kidney injury in conjunction with Diovan. We will pravin nue the patient on a low potassium diet. We will hold Diovan and monitor. 5. 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 Continue medical management. Contin ue offloading. Continue low air loss mattress. Continue pain control. 6. History of atrial fibrillation, currently rate controlled. Continue to monitor. 7. Anemia. Monitor H and H levels. 8. Mineral bone disorder. Monitor calcium and phosphorous levels. 9. History of coronary artery disease. Continue medical management. 10. Chronic pain syndrome. We will continue current pain regimen. We will place a consult for rubens n management. 11. Pyuria. No gross evidence of urinary tract infection. We will place an ID consult for evaluat ion. We will defer antibiotics at this time. Dictated By: MIGUEL LOWE DO NR/NTS Conf#: [id number] DID#: [id number] CC: ELINOR SMITH MD;*EndCC*
[2017-07-15 07:47] VITALS: BP 175/83; RESP 19
[2017-07-15] MEDS: HYDROmorphONE 2 MG TAB PO PRN ×2 (07:53→11:45)
[2017-07-15] MEDS ORDERED: HYDROCODONE/APAP (10/325) TAB PO PRN (07:55)
[2017-07-15] MEDS: GUAIFENESIN LA 600 MG TABSR PO PRN (08:09)
[2017-07-15] MEDS: FOLIC ACID 1 MG TAB PO SCH (08:09)
[2017-07-15] MEDS: DOCUSATE SODIUM 100 MG CAP PO SCH (08:09)
[2017-07-15] MEDS: SOD CHLORIDE 0.45% 1,000 ML IV SCH ×2 (08:10→18:00)
[2017-07-15] MEDS: ENOXAPARIN 40 MG/0.4 ML SYG SC SCH (08:17)
[2017-07-15] MEDS: ALBUMIN HUMAN 25% 100 ML IV SCH (08:19)
[2017-07-15] MEDS: MUPIROCIN 2% 22 GM OINT TOP SCH (08:21)
[2017-07-15] MEDS ORDERED: ERGOCALCIFEROL 50,000 UNIT CAP PO SCH (09:00)
[2017-07-15 09:12] VITALS: BP 127/75; RESP 20
[2017-07-15] MEDS ORDERED: AMLODIPINE 5 MG TAB PO SCH (10:00)
--- NOTE | 2017-07-15 10:50 | PN ---
DATE: 07/15/2017 SUBJECTIVE: The patient is stable. No events overnight. No fevers, chills, nausea, vomiting. OBJECTIVE: VITAL SIGNS: Blood pressure is 175/83, respiration 19, pulse 67, temperature 98.7. HEENT: Head is normocephalic. NECK: Supple. HEART: Regular rate. LUNGS: Show diminished breath sounds at the base. ABDOMEN: Soft, nontender to palpation, no rebound, guarding. EXTREMITIES: Negative for clubbing, cyanosis, no edema. DERMATOLOGIC: No rashes. MUSCULOSKELETAL: No joint effusions. NEUROLOGIC: No change in exam. MEDICATIONS: The patient's medications have been reviewed. LABORATORY DATA: Shows white count 6.1, hemoglobin 8.2, hematocrit 27.4, platelet count 205, sodium 145, potassium 5.5, chloride 112, BUN 51, creatinine 2.02. ASSESSMENT AND PLAN: 1. Right femoral fracture. The patient has been seen by orthopedist and no plan for intervention a t this time. We will continue the patient in a brace. 2. Nonoliguric acute kidney injury with unknown baseline creatinine. Etiology secondary to hemodyn amics, ARB effect. The patient's Ativan has been discontinued. The patient will receive fluid chal lenge. Previous urine electrolytes were reviewed. No evidence of obstruction on renal ultrasound a nd monitor closely. 3. Hyperkalemia secondary to chronic kidney disease and acute kidney injury. The patient's potassi um levels remain elevated. We will continue low-potassium diet. Will give fluid challenge, conside r Kayexalate. 4. Chronic kidney disease with unknown baseline creatinine, the patient is in current acute kidney injury as stated above. Continue current treatment plan. 5. History of quadriplegia secondary to C5 injury. Continue medical management. 6. History of atrial fibrillation, currently in normal sinus rhythm. Continue to monitor. 7. Anemia. Monitor hemoglobin and hematocrit levels. 8. Mineral bone disorder. Monitor calcium and phosphorus levels. 9. History of coronary artery disease. Continue medical management. 10. Chronic pain syndrome. We will follow up with pain management. 11. Pyuria, no evidence of urinary tract infection. Appreciate ID's evaluation. Continue to monit or. Dictated By: MIGUEL STARK/BIANCA Conf#: [id number] [facility]#: [id number]
[2017-07-15 14:00] VITALS: BP 118/63; RESP 19
[2017-07-15 14:37] LABS: CALCIUM 9.3 mg/dl (8.4-10.2); CREATININE 1.9 mg/dl (0.61-1.24); POTASSIUM 5.3 mmol/L (3.5-5.1)
--- NOTE | 2017-07-15 15:02 | PN ---
DATE: 07/15/2017 SUBJECTIVE: No acute changes. The patient is alert, feels good. Denies pain, no fevers. WBC 6.1, no shift, no bands. BUN 51, creatinine 2.02. PHYSICAL EXAMINATION: GENERAL: Well-developed, middle-aged white man who is in no distress. HEENT: Head atraumatic, normocephalic. Sclerae anicteric. Buccal mucosa dry. NECK: Supple. CHEST: Rise symmetrical. Breath sounds diminished to bases. HEART: S1, S2. ABDOMEN: Soft. Bowel tones present. EXTREMITIES: Without cyanosis. ASSESSMENT: 1. Right femoral fracture. 2. C5 quadriplegia. 3. History of respiratory failure, status post tracheostomy with decannulation. 4. History of coronary artery disease and atrial fibrillation. 5. Acute kidney injury. PLAN: The patient remains stable. He is off antibiotics and afebrile. He had a positive urinalysi s on admission, cultures not sent, but again he is stable and there is no evidence of active infecti ous process. We will continue observing him off antibiotics. Dictated By: INDER GODDARD MARINE ERECTOR for MC CURRIE/NTS Conf#: [id number] DID#: [id number]
[2017-07-15] MEDS ORDERED: HYDROmorphONE 2 MG TAB PO PRN (18:00)
[2017-07-15] MEDS: FENTAnyl PATCH 12 MCG/HR TRANSDERM SCH (18:03)
== END 2017-07-15 20:00 | disposition home health service (06) | DRG 533 ==
LOC: E/R 11:34 → MS1 15:10
PROVIDERS: ADMIT Internal Medicine; ATTEND Internal Medicine
DX: S72.491A Other fracture of lower end of right femur, initial encounter for closed fracture (principal); G82.50 Quadriplegia, unspecified; N17.9 Acute kidney failure, unspecified; I12.9 Hypertensive chronic kidney disease with stage 1 through stage 4 chronic kidney disease, or unspecified chronic kidney disease; N18.9 Chronic kidney disease, unspecified; D63.1 Anemia in chronic kidney disease; I25.2 Old myocardial infarction; I48.91 Unspecified atrial fibrillation; I25.10 Atherosclerotic heart disease of native coronary artery without angina pectoris; J45.909 Unspecified asthma, uncomplicated; E87.5 Hyperkalemia; G89.4 Chronic pain syndrome; Z79.82 Long term (current) use of aspirin; W50.2XXA Accidental twist by another person, initial encounter
CPT/HCPCS: 71010; 73550; 76775; 80048; 80053; 80061; 80076; 81001; 82270; 82607; 82728; 83540; 83735; 83970; 84100; 84155; 84300; 84436; 84479; 85025; 85610; 85730; 89190; 93005; 96374; 96375; 97163; J1170; J1650; J2405; P9047